=== PATIENT | male | born 1985 | race Caucasian/White ===

== ENCOUNTER 2019-01-13 22:41 | Emergency (ER) | payer SELFPAY ==
[~2019-01-13] VITALS: Ht 175.3 cm; Wt 93.0 kg
[~2019-01-13 22:41] MED LIST: AMPH20TA2 PO; HYDR1TAB PO; TBR.3OP51 OD; TYLENOL PO
[2019-01-14 00:03] LABS: BASOPHILS % (AUTO) 1 % (0-10); EOSINOPHILS # (AUTO) 0.3 10^3/uL (0.0-0.3); EOSINOPHILS % (AUTO) 4 % (0-10); HEMATOCRIT 47 % (40-54); HEMOGLOBIN 17.3 G/DL (13.3-17.7); LYMPHOCYTES % (AUTO) 29 % (12-44); MEAN CORPUSCULAR HEMOGLOBIN 30 PG (25-34); MEAN CORPUSCULAR HGB CONC 37 G/DL (32-36); MEAN CORPUSCULAR VOLUME 81 FL (80-99); MEAN PLATELET VOLUME 9.8 FL (7.4-10.4); MONOCYTES # (AUTO) 0.7 X 10^3 (0.0-1.0); MONOCYTES % (AUTO) 11 % (0-12); NEUTROPHILS # (AUTO) 3.9 X 10^3 (1.8-7.8); NEUTROPHILS % (AUTO) 56 % (42-75); PLATELET COUNT 244 10^3/uL (130-400); RED CELL DISTRIBUTION WIDTH 12.2 % (10.0-14.5); WHITE BLOOD COUNT 6.9 10^3/uL (4.3-11.0)
[2019-01-14] MEDS: LACTATED RINGERS 1,000 ML IV ONE (00:11)
[2019-01-14] MEDS: PANTOPRAZOLE 40 MG (PROTONIX) VIAL IV STA (00:11)
[2019-01-14 00:18] LABS: ALANINE AMINOTRANSFERASE 57 U/L (0-55); ALBUMIN 4.8 GM/DL (3.2-4.5); ALKALINE PHOSPHATASE 57 U/L (40-136); AMYLASE 56 U/L (25-125); BILIRUBIN,TOTAL 0.4 MG/DL (0.1-1.0); BUN/CREATININE RATIO 6; CALCIUM 9.8 MG/DL (8.5-10.1); CARBON DIOXIDE 21 MMOL/L (21-32); CHLORIDE 107 MMOL/L (98-107); GFR ESTIMATED > 60; GLUCOSE 106 MG/DL (70-105); LIPASE 80 U/L (8-78); MAGNESIUM 2.6 MG/DL (1.8-2.4); POTASSIUM 3.6 MMOL/L (3.6-5.0); SODIUM 143 MMOL/L (135-145); TOTAL PROTEIN 7.6 GM/DL (6.4-8.2)
[2019-01-14 00:21] LABS: INR 0.9 (0.8-1.4); PROTHROMBIN TIME PATIENT 12.4 SEC (12.2-14.7)
[2019-01-14 00:30] LABS: AMPHETAMINE SCREEN, URINE NEGATIVE (NEGATIVE); BARBITURATE SCREEN URINE NEGATIVE (NEGATIVE); BENZODIAZEPINES SCREEN URINE NEGATIVE (NEGATIVE); CANNABINOID SCREEN, URINE NEGATIVE (NEGATIVE); COCAINE SCREEN URINE NEGATIVE (NEGATIVE); METHADONE STAT NEGATIVE (NEGATIVE); METHAMPHETAMINE SCREEN URINE S NEGATIVE (NEGATIVE); OPIATE SCREEN URINE NEGATIVE (NEGATIVE); OXYCODONE STAT NEGATIVE (NEGATIVE); PROPOXYPHENE STAT NEGATIVE (NEGATIVE); TRICYCLIC ANTIDEPRESSANTS SCRE NEGATIVE (NEGATIVE)
[2019-01-14 00:31] LABS: CLARITY,URINE CLEAR; COLOR,URINE YELLOW; PH,URINE 6 (5-9)
[2019-01-14 00:32] LABS: BACTERIA,URINE NEGATIVE /HPF; BILIRUBIN,URINE NEGATIVE (NEGATIVE); GLUCOSE, URINE (UA) NEGATIVE (NEGATIVE); KETONES,URINE NEGATIVE (NEGATIVE); LEUKOCYTE ESTERASE ,URINE NEGATIVE (NEGATIVE); NITRITE,URINE NEGATIVE (NEGATIVE); PROTEIN,URINE NEGATIVE (NEGATIVE); UROBILINOGEN,URINE NORMAL (NORMAL)
[2019-01-14] MEDS: IOHEXOL 350 MG/ML 100 ML (OMNIPAQUE 350) VIAL IV ONE (01:08)
[2019-01-14] MEDS ORDERED: HOLD METFORMIN - RECEIVED CONTRAST 20 ML VIAL IV SCH (01:15)
[2019-01-14] MEDS ORDERED: PANT40TA2 PO (01:57)
[2019-01-14] MEDS ORDERED: CEFD300C3 PO (01:57)
[2019-01-14] MEDS ORDERED: AZIT500T PO (01:57)
--- NOTE | 2019-01-14 01:57 | ED General ---
General Chief Complaint: Chest Pain Stated Complaint: SOB,L SIDED UPPER ABD PAIN Nursing Triage Note: Pt ambulatory to triage. Pt c/o chest pain, and difficulty breathing that began a couple of days ago. Pt c/o worsened pain with inspiration, but states the pain is consistent. Pt reports pain is worse under L breast. Pt denies cough, fever. Pt reports drinking 4-5 beers tonight to try to ease the pain. Nursing Sepsis Screen: No Definite Risk Source of Information: Patient (PT IS LIMITED HISTORIAN), Other (FEMALE S.O.) Exam Limitations: Intoxication History of Present Illness Date Seen by Provider: Jan 13, 2019 Time Seen by Provider: 23:45 Initial Comments PT ARRIVES VIA POV FROM HOME C/O EPIGASTRIC AND LUQ PAIN FOR A COUPLE OF DAYS STATES PAIN IS WORSE WITH BREATHING AND FEELS SHORT OF BREATH DUE TO PAIN NO FEVER/SWEATS/CHILLS NO NAUSEA/VOMITING/DIARRHEA NO COUGH NO RADIATION OF PAIN HAS CONTINUED TO EAT AND DRINK USUAL, INCLUDING A 6 PACK OF BEER TODAY--PT HAS LONG HISTORY OF ALCOHOL ABUSE, DRINKING 12 PACK OF BEER PLUS LARGE AMOUNTS OF VODKA/HARD LIQUOR A DAY. PT ALSO HAS LONG HISTORY OF POLYSUBSTANCE ABUSE, INCLUDING RX DRUG ABUSE WELL OTHER ILLEGAL SUBSTANCES. PT CLAIMS ONLY THC USE TODAY LAST FOOD INTAKE WA S4-5 HOURS AGO HAS NOT SOUGHT CARE UNTIL TODAY SYMPTOMS NO DIFFERENT TODAY HAS NOT TAKEN ANYTHING FOR SYMPTOMS NO HISTORY OF SIMILAR PCP: DR. MOTA Allergies and Home Medications Allergies Coded Allergies: No Known Drug Allergies (Unverified , 06/11/12) Home Medications Azithromycin 500 Mg Tablet, 500 MG PO DAILY FOR INFECTION Prescribed by: IND[place]NA GODWIN on 01/14/19156 Cefdinir 300 Mg Capsule, 300 MG PO BID Prescribed by: IND[place] GODWIN on 01/14/19156 Dextroamphetamine/Amphetamine 20 Mg Tablet, 40 MG PO BID, (Reported) TAKES 2 (20 MG) TABLETS Pantoprazole Sodium 40 Mg Tablet.dr, 40 MG PO DAILY Prescribed by: IND[place] GODWIN on 01/14/19156 [Tylenol ] , 2 TAB PO DAILY PRN for PAIN, (Reported) Patient Home Medication List Home Medication List Reviewed: Yes Review of Systems Review of Systems Constitutional: no symptoms reported EENTM: no symptoms reported Respiratory: see HPI, short of breath Cardiovascular: no symptoms reported; No chest pain Gastrointestinal: see HPI, abdominal pain; No nausea, No vomiting Genitourinary: no symptoms reported Musculoskeletal: no symptoms reported Skin: no symptoms reported Psychiatric/Neurological: No Symptoms Reported Hematologic/Lymphatic: No Symptoms Reported Immunological/Allergic: no symptoms reported Past Onifdgy-Bdnxhf-Zsqhjv Hx Patient Social History Alcohol Use: Regular Use (HISTORY OF ETOH ABUSE--12 PACK BEER / DAY PLUS VODKA/ HARD LIQUOR DAILY) Number of Drinks Today: AA Alcohol Beverage of Choice: Beer Recreational Drug Use: Yes ("EVERYTHING" PER PT, DENIES IV USE--ABUSES RX DRUGS INCLUDING ADDERALL. ALSO THC, METH, COCAINE, OTHERS--UNABLE TO STATE WHAT OTHER DRUGS HE HAS USED) Drug of Choice: RX DRUGS, ESPECIALLY ADDERALL, ALSO THC, METH, COCAINE, "OTHERS " Smoking Status: Current Everyday Smoker (1 PPD) Type Used: Cigarettes (1 PPD) 2nd Hand Smoke Exposure: Yes Recent Foreign Travel: No Contact w/Someone Who Travel: No Recent Infectious Disease Expo: No Recent Hopitalizations: No Physical Abuse: No Sexual Abuse: No Mistreated: No Immunizations Up To Date Tetanus Booster (TDap): Unknown PED Vaccines UTD: No Seasonal Allergies Seasonal Allergies: No Past Medical History Surgeries: Yes ("HEAD INJURY") Respiratory: No Cardiac: No 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 5.0oz. [id number]; 25.4 BMI Method:Stated General Appearance: No Apparent Distress, WD/WN, Other (STRONG ODOR OF ALCOHOL AND CIGARETTES. ) HEENT: PERRL/EOMI; No Scleral Icterus (L), No Scleral Icterus (R) Neck: Normal Inspection Respiratory: Normal Breath Sounds, No Accessory Muscle Use, No Respiratory Distress Cardiovascular: Regular Rate, Rhythm, No Edema, No Murmur, Normal Peripheral Pulses Gastrointestinal: Normal Bowel Sounds, No Organomegaly, No Pulsatile Mass, Non Tender, Soft, Tenderness (EPIGASTRIC AND LUQ TENDERNESS) Back: Normal Inspection Extremity: Normal Inspection Neurologic/Psychiatric: Alert, Oriented x3, No Motor/Sensory Deficits, hog tender II- XII Norm as Tested Skin: Normal Color, Warm/Dry; No Rash Progress/Results/Core Measures Suspected Sepsis Recent Fever Within 48 Hours: No Infection Criteria Present: None New/Unexplained Altered Menta: No Sepsis Screen: No Definite Risk SIRS Temperature:98.1 Pulse: 107 Respiratory Rate: 16 Laboratory Tests 01/13/19 23:50: White Blood Count 6.9 Blood Pressure 146 /87 Mean: 106 Laboratory Tests 01/13/19 23:50: Creatinine 0.80, INR Comment 0.9, Platelet Count 244, Total Bilirubin 0.4 Results/Orders Lab Results Laboratory Tests Test 01/13/19 23:44 01/13/19 23:50 Range/Units Urine Color YELLOW Urine Clarity CLEAR Urine pH 6 5-9 Urine Specific [place] 1.010 L 1.016-1.022 Urine Protein NEGATIVE NEGATIVE Urine Glucose (UA) NEGATIVE NEGATIVE Urine Ketones NEGATIVE NEGATIVE Urine Nitrite NEGATIVE NEGATIVE Urine Bilirubin NEGATIVE NEGATIVE Urine Urobilinogen NORMAL NORMAL MG/DL Urine Leukocyte Esterase NEGATIVE NEGATIVE Urine RBC (Auto) NEGATIVE NEGATIVE Urine RBC NONE /HPF Urine WBC NONE /HPF Urine Squamous Epithelial Cells NONE /HPF Urine Crystals NONE /LPF Urine Bacteria NEGATIVE /HPF Urine Casts NONE /LPF Urine Mucus NEGATIVE /LPF Urine Culture Indicated NO Urine Opiates Screen NEGATIVE NEGATIVE Urine Oxycodone Screen NEGATIVE NEGATIVE Urine Methadone Screen NEGATIVE NEGATIVE Urine Propoxyphene Screen NEGATIVE NEGATIVE Urine Barbiturates Screen NEGATIVE NEGATIVE Ur Tricyclic Antidepressants Screen NEGATIVE NEGATIVE Urine Phencyclidine Screen NEGATIVE NEGATIVE Urine Amphetamines Screen NEGATIVE NEGATIVE Urine Methamphetamines Screen NEGATIVE NEGATIVE Urine Benzodiazepines Screen NEGATIVE NEGATIVE Urine Cocaine Screen NEGATIVE NEGATIVE Urine Cannabinoids Screen NEGATIVE NEGATIVE White Blood Count 6.9 4.3-11.0 10^3/uL Red Blood Count 5.76 4.35-5.85 10^6/uL Hemoglobin 17.3 13.3-17.7 G/DL Hematocrit 47 40-54 % Mean Corpuscular Volume 81 80-99 FL Mean Corpuscular Hemoglobin 30 25-34 PG Mean Corpuscular Hemoglobin Concent 37 H 32-36 G/DL Red Cell Distribution Width 12.2 10.0-14.5 % Platelet Count 244 130-400 10^3/uL Mean Platelet Volume 9.8 7.4-10.4 FL Neutrophils (%) (Auto) 56 42-75 % Lymphocytes (%) (Auto) 29 12-44 % Monocytes (%) (Auto) 11 0-12 % Eosinophils (%) (Auto) 4 0-10 % Basophils (%) (Auto) 1 0-10 % Neutrophils # (Auto) 3.9 1.8-7.8 X 10^3 Lymphocytes # (Auto) 2.0 1.0-4.0 X 10^3 Monocytes # (Auto) 0.7 0.0-1.0 X 10^3 Eosinophils # (Auto) 0.3 0.0-0.3 10^3/uL Basophils # (Auto) 0.0 0.0-0.1 10^3/uL Prothrombin Time 12.4 12.2-14.7 SEC INR Comment 0.9 0.8-1.4 Activated Partial Thromboplast Time 31 24-35 SEC Sodium Level 143 135-145 MMOL/L Potassium Level 3.6 3.6-5.0 MMOL/L Chloride Level 107 98-107 MMOL/L Carbon Dioxide Level 21 21-32 MMOL/L Anion Gap 15 H 5-14 MMOL/L Blood Urea Nitrogen 5 L 7-18 MG/DL Creatinine 0.80 0.60-1.30 MG/DL Estimat Glomerular Filtration Rate > 60 BUN/Creatinine Ratio 6 Glucose Level 106 H 70-105 MG/DL Calcium Level 9.8 8.5-10.1 MG/DL Corrected Calcium 8.5-10.1 MG/DL Magnesium Level 2.6 H 1.8-2.4 MG/DL Total Bilirubin 0.4 0.1-1.0 MG/DL Aspartate Amino Transf (AST/SGOT) 22 5-34 U/L Alanine Aminotransferase (ALT/SGPT) 57 H 0-55 U/L Alkaline Phosphatase 57 40-136 U/L Troponin I < 0.028 <0.028 NG/ML B-Type Natriuretic Peptide < 10.0 <100.0 PG/ML Total Protein 7.6 6.4-8.2 GM/DL Albumin 4.8 H 3.2-4.5 GM/DL Amylase Level 56 25-125 U/L Lipase 80 H 8-78 U/L Serum Alcohol 115 H <10 MG/DL My Orders Orders - INDIANA GODWIN DO Alcohol (01/13/19 23:55) Amylase (01/13/19 23:55) BNP (01/13/19 23:55) Cbc With Automated Diff (01/13/19 23:55) Comprehensive Metabolic Panel (01/13/19 23:55) Drug Screen Stat (Urine) (01/13/19 23:55) Lipase (01/13/19 23:55) Magnesium (01/13/19 23:55) Protime With Inr (01/13/19:55) Partial Thromboplastin Time (01/13/19:55) Troponin I (01/13/19 23:55) Ua Culture If Indicated (01/13/19 23:55) Ekg Tracing (01/13/19 23:55) Monitor-Rhythm Ecg Trace Only (01/13/19 23:55) Ed Iv/Invasive Line Start (01/13/19 23:55) Lactated Ringers (Lr 1000 Ml Iv Solution (01/13/19 23:55) Pantoprazole Injection (Protonix Injecti (01/13/19 23:55) Ct Abdomen/Pelvis W (01/14/19 00:24) Acute Abd Series (01/14/19 00:24) Iohexol Injection (Omnipaque 350 Mg/Ml 1 (01/14/19 01:15) Received Contrast (Hold Metformin- Contr (01/14/19 01:15) Ceftriaxone For Iv Use (Rocephin For I (01/14/19 02:00) Ketorolac Injection (Toradol Injection) (01/14/19 02:00) Medications Given in ED Vital Signs/I&O Capillary Refill : Less Than 3 Seconds Blood Pressure Mean: 106 Progress Note : Progress Note SYMPTOMS IMPROVED AT DISMISSAL ECG Initial ECG Impression Date: Jan 13, 2019 Initial ECG Impression Time: 23:29 Initial ECG Rate: 100 Initial ECG Rhythm: Normal Sinus Diagnostic Imaging Comments ACUTE ABDOMEN XRAYS--NO ACUTE PROCESS, PENDING RADIOLOGIST REVIEW CT ABDOMEN/PELVIS-INFILTRATE AND TRACE EFFUSION IN LEFT LOWER POSTERIOR CHEST. PER [facility] VIA FAX AT [id number] Reviewed: Reviewed by Me Departure Impression Primary Impression: LLL pneumonia Additional Impressions: Alcohol intoxication Epigastric abdominal pain POSSIBLE ALCOHOLIC GASTRITIS Disposition: HOME, SELF-CARE Condition: Stable Departure-Patient Inst. Referrals: NO,LOCAL PHYSICIAN (PCP/Family) Primary Care Physician Patient Instructions: Alcohol Abuse and Alcoholism (DC), Alcohol Use - When Is Drinking a Problem?, Gastritis (DC), Pneumonia, Adult (DC) Add. Discharge Instructions: NO ALCOHOL CLEAR LIQUIDS--WATER, BROTH, JELLO, GATORADE BRATS DIET--BANANAS, RICE, APPLESAUCE, TOAST, SALTINES TYLENOL NEEDED FOR PAIN OR FEVER FOLLOW UP WITH OF CHOICE ON THURSDAY FOR FURTHER CARE, RETURN TO ER IF WORSE All discharge instructions reviewed with patient and/or family. Voiced understanding. Scripts Azithromycin (Zithromax) 500 Mg Tablet 500 MG PO DAILY, #5 TAB FOR INFECTION Prov: IND[place] GODWIN DO 01/14/19 Cefdinir (Cefdinir) 300 Mg Capsule 300 MG PO BID for FOR INFECTION, #20 CAP Prov: IND[place] GODWIN DO 01/14/19 Pantoprazole Sodium (Protonix) 40 Mg Tablet. 40 MG PO DAILY, #15 TAB Prov: INDIANA GODWIN DO 01/14/19 IND[place]NA GODWIN DO Jan 14, 2019 01:57
[2019-01-14] MEDS: cefTRIAXone FOR IV USE 1,000 MG in WATER (STERILE) FOR INJECTION 10 ML IV ONE (02:00)
[2019-01-14] MEDS: KETOROLAC 30 MG/ML VIAL IVP ONE (02:00)
[2019-01-14 02:27] VITALS: BP 136/93
--- NOTE | 2019-01-14 05:58 | Diagnostic Imaging Report ---
Clinical indication: Patient with left-sided abdominal pain x2 days. No surgical history. EXAMS: X-ray of the chest PA view and x-ray of the abdomen supine and upright views. COMPARISONS: None. FINDINGS: LUNGS/ PLEURA: There is a small amount of curvilinear opacities in left lung base which may represent atelectasis, but superimposed infiltrate can't be completely excluded. The remainder of the lungs are clear. There is no pneumothorax. There is no pleural effusion seen. MEDIASTINUM: Unremarkable. PULMONARY VASCULATURE: Unremarkable. HEART: Unremarkable. BONES/ EXTRATHORACIC SOFT TISSUE: Unremarkable. ABDOMEN AND PELVIS: Unremarkable x-ray of the abdomen with nonobstructed bowel gas pattern. There is no evidence of abdominal free air. There are no focal calcifications overlying the expected regions/ pathways of both kidneys, ureters, and bladder regions. IMPRESSION: 1: There is mild left lung base atelectasis versus infiltrate. 2: Unremarkable x-ray of the abdomen. Dictated by: Dictated on workstation # [id number]
--- NOTE | 2019-01-14 07:22 | Diagnostic Imaging Report ---
PROCEDURE: CT abdomen and pelvis with contrast. TECHNIQUE: Multiple contiguous axial images were obtained through the abdomen and pelvis after administration of intravenous contrast. Auto Exposure Controls were utilized during the CT exam to meet ALARA standards for radiation dose reduction. INDICATION: 33-year-old male with left-sided abdominal pain for 2 days. COMPARISONS: None FINDINGS: Lung bases show a scarlike consolidated density in the left costophrenic recess extending to the pleura where there is a small effusion. The nodular density appears more prominent and rounded measuring 18 mm in the left costophrenic recess. Cardiac contour is normal. There is a sliver of pericardial effusion felt to be physiologic. Liver shows uniform attenuation. Gallbladder is nondistended. Spleen and GE junction are normal. Stomach and duodenal sweep are normal. Pancreas shows sharp margins. Adrenals are normal. Kidneys appear normal in size, composition and contour. There is symmetrical perfusion and extrusion of contrast. There is a duplicated right renal collecting system. Ureters are otherwise seen through intermittently through their course and show no evidence of hydroureter or ureteral calculus. Partially filled bladder is normal. Prosthetic calcifications are seen. Nonopacified loops of small bowel are unremarkable. A few shotty benign-appearing mesenteric nodes are seen but no evidence of adenopathy or adenitis. Appendix is normal. Large bowel contains fecal material and gas. There is some minimal mucosal thickening in the proximal sigmoid colon which is felt to be due to nondistention. There are few localized diverticula but no definite evidence of acute diverticulitis. The distal sigmoid colon and rectum contains fecal material and gas. There is no free air, free fluid or adenopathy visualized vasculature shows normal caliber of the aorta, iliac and femoral arteries with normal origin of the visceral arteries. IMPRESSION: 1. Some mucosal thickening with some diverticula within the proximal sigmoid colon but no definite evidence of acute diverticulitis. 2. There is no evidence of cholecystitis, appendicitis or obstructive uropathy 3. Few shotty benign-appearing mesenteric nodes but no evidence of adenopathy or adenitis. 4. Scarlike density in the left lower lobe with largest portion measuring approximately 18 mm near the surface along the left costophrenic recess. There is a subjacent small left effusion. Short-term followup in to 2-3 months recommended with clinical correlation. Agree with [facility] report. Dictated by: Dictated on workstation # [id number]
== END 2019-01-14 02:27 | disposition home or self-care (01) ==
LOC: EDUNIT# 22:41 → ER 22:43
DX: J18.1 Lobar pneumonia, unspecified organism (principal); F10.129 Alcohol abuse with intoxication, unspecified; R10.13 Epigastric pain; F98.8 Other specified behavioral and emotional disorders with onset usually occurring in childhood and adolescence; F90.9 Attention-deficit hyperactivity disorder, unspecified type; F32.9 Major depressive disorder, single episode, unspecified; F17.210 Nicotine dependence, cigarettes, uncomplicated; Z87.820 Personal history of traumatic brain injury; Z91.5 Personal history of self-harm; Z82.49 Family history of ischemic heart disease and other diseases of the circulatory system
CPT/HCPCS: 36415; 74022; 74177; 80053; 80306; 80320; 81000; 82150; 83690; 83735; 83880; 84484; 85025; 85610; 85730; 93005; 93041